=== PATIENT | male | born 1975 | race African-American/Black ===

== ENCOUNTER 2022-08-17 17:45 | Emergency (ER) | payer SELFPAY ==
[2022-08-17 17:43] VITALS: BP 120/74; PULSE 82; RESP 28; TEMP 36.8; O2SAT 99
[2022-08-17 17:48] VITALS: PULSE 85; RESP 28; O2SAT 99
--- NOTE | 2022-08-17 17:48 | ECG_ITS ---
Measurements Intervals [place] Rate: 81 P: 62 LA: 158 QRS: 53 QRSD: 97 T: 66 QT: 360 QTc: 419 Interpretive Statements SINUS RHYTHM NONSPECIFC ST ELEVATION IN ANTERIOR LEADS BORDERLINE ECG NO PREVIOUS ECG AVAILABLE FOR COMPARISON Electronically Signed On 08-17-2022 20:15:40 CDT by Shun Adler D.O.
[2022-08-17 18:01] LABS: Basophils Percent Auto 0.5 % (0.2-1.2); Eosinophils Absolute Auto 0.3 K/mm3 (0-0.3); Eosinophils Percent Auto 3.1 % (0-4.4); Hematocrit 44.3 % (42.0-52.0); Hemoglobin 14.6 g/dL (14.0-18.0); Immature Granulocyte Absolute 0.05 K/mm3 (0.00-0.031); Immature Granulocyte Percent A 0.6 % (0-0.5); Lymphocytes Percent Auto 18.9 % (18.3-44.2); Mean Corpuscular Hemoglobin 29.8 pg (26-34); Mean Corpuscular Volume 90.4 fl (80-100); Mean Platelet Volume 9.4 fl (7.4-10.4); Monocytes Absolute Auto 0.7 K/mm3 (0.1-0.6); Neutrophils Absolute Auto 5.8 K/mm3 (1.3-6.7); Neutrophils Percent Auto 68.9 % (45.5-73.1); Platelet Count Result 197 k/mm3 (150-375); White Blood Count 8.5 K/mm3 (4.5-10.0)
--- NOTE | 2022-08-17 18:04 | ED.AMS ---
HPI - Altered Mental Status General Chief Complaint: Altered Mental Status <MARILYN Chaves Last Filed: 08/18/22 02:28> Stated Complaint: altered <MARILYN Chaves Last Filed: 08/18/22 02:28> Time Seen by Provider: 08/17/22 17:47 <MARILYN Chaves Last Filed: 08/18/22 02:28> Source: patient and EMS <MARILYN Chaves Last Filed: 08/18/22 02:28> Mode of arrival: EMS <MARILYN Chaves Last Filed: 08/18/22 02:28> Limitations: no limitations <MARILYN Chaves Last Filed: 08/18/22 02:28> History of Present Illness HPI narrative: Patient is a 46 y/o male who presents to the ED via EMS with c/o altered mental status. Per EMS report, patient is homeless. He was found asleep after eating at a restaurant. He does not remember which restaurant he was at. He states he ate fish and fries. He states he felt lightheaded and fell asleep. He denies any complaints currently. He states he has felt fine the last few days. Asking for water. Denies chest pain, difficulty breathing, headache, vision changes. Patient denies any drug or alcohol use today. Denies SI, HI, AVH. <MARILYN Chaves Last Filed: 08/18/22 02:28> Review of Systems Review of Systems: CONSTITUTIONAL: Denies fever, chills, or sweats. EYES: Denies visual changes. CARDIOVASCULAR: Denies chest pain. RESPIRATORY: Denies dyspnea. GASTROINTESTINAL: Denies abdominal pain, nausea, vomiting, or diarrhea. NEUROLOGIC: Reports lightheadedness. Denies headache, numbness, or weakness. PSYCHIATRIC: Denies anxiety, depression, SI, HI, AVH. <MARILYN Chaves Last Filed: 08/18/22 02:28> All systems reviewed & are unremarkable except as noted in HPI and below <Ananya Salcedo PA-C - Last Filed: 08/18/22 02:28> [facility] Past Medical History Medical History: Medical History (Updated 08/19/22 @ 00:00 by Brianda Madisonjeri) No pertinent past medical history <Ananya Salcedo PA-C - Last Filed: 08/18/22 02:28> Surgical History Surgical History: Surgical History (Updated 08/17/22 @ 18:49 by Ananya Salcedo PA-C) No pertinent past surgical history <Ananya Salcedo PA-C - Last Filed: 08/18/22 02:28> Social History Social History: Social History (Updated 08/17/22 @ 18:49 by Ananya Salcedo PA-C) Smoking status: Current every day smoker Alcohol intake: current Substance use: never <Ananya Salcedo PA-C - Last Filed: 08/18/22 02:28> Exam Narrative: GENERAL: Mildly disheveled appearing, well-nourished, non-toxic, in no acute distress. HEAD: Normocephalic, atraumatic. EYES: PERRL/EOMI, pupils small, but reactive. Conjunctivae clear bilaterally. NOSE: Normal, no drainage. NECK: Supple. No adenopathy, no masses. RESPIRATORY: Airway patent, respirations nonlabored. Clear to auscultation bilaterally, no rales, rhonchi, wheezing. CARDIOVASCULAR: Regular rate and rhythm without murmurs, rubs, or gallops. Peripheral pulses 2+ and equal bilaterally. ABDOMINAL: Soft, nontender, nondistended, no hepatosplenomegaly. Normoactive BS. MUSCULOSKELETAL: Moves all extremities. Strength/ROM intact without gross deformities. SKIN: Warm, dry, normal color. No rashes. NEURO: A&O X3. Speech clear. Soft spoken. Cranial nerves II-XII grossly intact. Steady gait. No ataxic movements. No focal deficits. PSYCHIATRIC: Appropriate mood and affect. Normal interaction. <Ananya Salcedo PA-C - Last Filed: 08/18/22 02:28> Course [employer]ORDINATOR [employer]/PA Physician Supervision For this encounter, I have reviewed the mid-level provider documentation, treatment plan and medical decision making. All questions answered. Patient does not want further care. discharged AMA. <Raoul Garza MD - Last Filed: 08/24/22 19:39> Vital Signs Vital signs: Vital Signs Temperature 98.3 F 08/17/22 17:43 Pulse Rate 82 08/17/22 17:43 Re
[2022-08-17 18:12] LABS: Alanine Aminotransferase 30 U/L (6-50); Albumin Level 4.6 g/dL (3.5-5.1); Alkaline Phosphatase 76 U/L (38-126); Anion Gap 12 mmol/L (8-16); Aspartate Amino Transferase 34 U/L (17-59); Blood Urea Nitrogen 10 mg/dL (9-20); Calcium 9.3 mg/dL (8.4-10.2); Carbon Dioxide 27 mmol/L (22-30); Chloride 101 mmol/L (98-107); Estimated CRCL calculation 102 ml/min; Estimated Glomerular Filt Rate > 60; Glucose 135 mg/dL (65-110); Potassium 3.7 mmol/L (3.4-5.0); Sodium 140 mmol/L (137-145)
[2022-08-17 18:19] LABS: INR 1.1; Prothrombin Time 13.5 Seconds (11.1-14.7)
[2022-08-17 18:20] LABS: Partial Thromboplastin Time 29.4 SECONDS (22.3-36.8)
--- NOTE | 2022-08-17 18:30 | PC.NURSE ---
pt. repeatedly wandering around hallway. pt. instructed to stay in room. pt. states he is ready to go home. PA notified pt. wants to sign out LAURA TREADWELL okay to have pt. sign out.
[2022-08-17 18:38] LABS: Appearance Urine Slightly Cloudy (Clear); Bilirubin Urine Negative (Negative); Blood Urine Negative (Negative); Color Urine Yellow (Yellow); Glucose Urine UA Negative (Negative); Ketones Urine Negative (Negative); Leukocyte Esterase Ur Negative LEU/UL (Negative); Nitrate Urine Negative (Negative); Protein Urine Negative (Negative); Urobilinogen Urine 0.2 mg/dL (<2.0); pH Urine 5.5 (5.0-9.0)
[2022-08-17 18:44] LABS: Bacteria Urine Trace /hpf; RBC Urine 0-2 /hpf (0-2); Squamous Epithelial Cell Urine Rare /hpf (Few)
[2022-08-17 18:47] LABS: Add Urine Microscopic? YES
[2022-08-17 19:00] LABS: Amphetamine Screen Urine Negative (Negative); Barbiturate Screen Urine Negative (Negative); Benzodiazepines Screen Urine Negative (Negative); Cannabinoid Screen Urine Negative (Negative); Cocaine Screen Urine Negative (Negative); Methadone Screen Urine Negative (Negative); Opiate Screen Urine Negative (Negative); Phencyclidine Screen Urine Negative (Negative)
== END 2022-08-17 18:45 | disposition left against medical advice (07) ==
PROVIDERS: Physician Assistant; Emergency Provider Emergency Medicine
DX: R41.82 Altered mental status, unspecified (principal); Z59.00 Homelessness unspecified; F17.200 Nicotine dependence, unspecified, uncomplicated
CPT/HCPCS: 36415; 80053; 80307; 81001; 85025; 85610; 85730; 93005; 99284